=== PATIENT | female | born 1965 | race Caucasian/White ===

== ENCOUNTER → 2016-12-10 | Outpatient (CLI) | payer BC | LOC: GMAH 16:39 | PROVIDERS: ATTEND Family Medicine | DX: M06.4 Inflammatory polyarthropathy (principal) ==

== ENCOUNTER → 2017-12-20 | Outpatient (CLI) | payer BC, OTHER ==
--- NOTE | 2017-12-20 21:15 | MRI ---
EXAM DESCRIPTION: Cervical Spine: MRI. CLINICAL HISTORY: LOW BACK PAIN COMPARISON: MRI lumbar spine on the same visit. TECHNIQUE: Multiplanar MRI, multiple sequences, non-contrast High-field. FINDINGS: C3-C4: Disc desiccation minimal anterior bulge. Disc space preserved. Posterior bulge in the midline 3 mm abutting the cord. Moderate canal narrowing. Bilateral facets are unremarkable. Bilateral neural foramina are patent. C4-5: Disc space loss and trace retrolisthesis. Anterior disc bulge and endplate ridging. Posterior disc osteophyte bulge abutting the cord. Bilateral uncinate spurs. Moderate canal narrowing and bilateral moderate neural foraminal narrowing. Bilateral facets are unremarkable. C5-6: Moderate disc space loss and disc desiccation with anterior bulging and endplate ridging. Grade 1 retrolisthesis. Posterior midline disc osteophyte bulge impressing on the cord with borderline canal stenosis. Bilateral uncinate spurs. Minimal left facet arthrosis. Mild left neural foraminal stenosis. Moderate right neural foraminal narrowing. C6-7: Disc desiccation. Tiny posterior bulge. Disc space preserved. Bilateral facets are unremarkable. Bilateral neural foramina are patent. Mild canal narrowing. Normal signal in the remaining discs with no bulging. Disc spaces preserved. Canal and neural foramina are patent. Facets negative. No scoliosis. Spine is kyphotic C2-C5. No cord compression or cord edema. Atlantoaxial joint is unremarkable. Base of the cerebellar tonsils is above the foramen magnum. Paravertebral soft tissues show small cyst in the upper pole of the left thyroid lobe. Vertebral bodies are not compressed at any level. Well-circumscribed T1 and T2 signal in the odontoid process. Similar signal in the left C3 vertebral body the C5 vertebral body and the C7 and T1 vertebral bodies. No signal on inversion recovery in these regions. Otherwise normal marrow signal in the remaining vertebral bodies and the posterior elements. IMPRESSION: 1. Grade 1 retrolisthesis C5-6 with posterior midline disc osteophyte bulge or focal protrusion impressing on the cord with borderline canal stenosis. Mild left neural foraminal stenosis, correlate for left C6 radiculopathy. 2. Posterior C4-5 disc osteophyte bulge abutting the cord. Bilateral moderate neural foraminal narrowing and canal narrowing. 3. Posterior midline C3-4 disc bulge abutting the cord with moderate canal narrowing. 4. 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 Electronically signed by: David Fitzgerald MD 12/20/2017 9:13 PM CDT
--- NOTE | 2017-12-20 21:27 | MRI ---
EXAM DESCRIPTION: Lumbar Spine w/o Contrast : Magnetic Resonance Imaging. CLINICAL HISTORY: BACK PAIN COMPARISON: MRI scan cervical spine on this visit. TECHNIQUE: Multiplanar, multiple standard sequences, non contrast MRI, lumbar spine. FINDINGS: L5-S1: Minimal disc desiccation. Minimal disc space loss. Focal right posterior disc protrusion abutting the descending right S1 nerve above the lateral recess. Moderate right paracentral canal narrowing. Posterior elements unremarkable. Bilateral foramina are patent. L4-5: Disc desiccation and disc space preserved. Posterior minimal broad-based bulge abutting the thecal sac. Minimal arthrosis in the right facet. 5 mm left intraforaminal disc bulge with annular fissure abutting the exiting left L4 nerve with moderate canal narrowing. L3-4: Normal signal in the disc. Minimal hypertrophy of the posterior ligaments with mild canal narrowing. Facets are unremarkable and bilateral foramina are patent. L2-3: Anterior Modic type II endplate reactive changes in the L2 endplate. Normal signal in the disc with no posterior bulging. Posterior elements unremarkable. Canal and foramina are patent. L1-2 disc with normal signal and normal disc space. Posterior elements are unremarkable. Canal and foramina are patent. Conus terminates at this level. T12-L1: Disc space normal. Normal signal in the disc. Posterior elements unremarkable. Canal and foramina are patent. Heterogeneous marrow signal. Multiple varying size well-circumscribed round foci of bright T1 and T2 signal which are not seen on the inversion recovery sequences. Anatomic curvature of the spine. Paravertebral soft tissues are unremarkable.. Heterogeneous marrow signal in the remainder of the bone elements. Vertebral bodies are not compressed at any level. IMPRESSION: 1. Focal right posterior L5-S1 disc protrusion impressing on the descending right S1 nerve. Correlate for right S1 radiculopathy. 2. L4-5 disc bulge with annular fissure into the left foramen abutting the exiting left L4 nerve. Correlate for radiculopathy. 3. Anterior spondylosis L2-3. Disc unremarkable. Canal and foramina are patent. 4. Marrow reconversion and inhomogeneity with multiple focal small hemangiomas. Electronically signed by: David Fitzgerald MD 12/20/2017 9:26 PM CDT
== END ==
LOC: MRI 13:14
PROVIDERS: ATTEND Family Medicine
DX: M43.12 Spondylolisthesis, cervical region (principal); M50.222 Other cervical disc displacement at C5-C6 level

== ENCOUNTER → 2018-03-01 | Outpatient (CLI) | payer BC | LOC: GMATM 20:25 | PROVIDERS: ATTEND Nurse Practitioner Family | DX: R39.11 Hesitancy of micturition (principal) ==

== ENCOUNTER 2018-08-10 07:46 | Day surgery (SDC) | payer BC ==
[~2018-08-10 07:46] MED LIST: LACTATED RINGERS 1,000 ML ONE; MIDAZOLAM INJ 2 MG/2 ML VIAL ONE
[2018-08-10 10:00] VITALS: BP 111/78; TEMP 97; O2SAT 100
[2018-08-10] MEDS ORDERED: LIDOCAINE 1% 10 ML VIAL INJ ONE (10:00)
[2018-08-10] MEDS ORDERED: PROPOFOL 200 MG/20 ML VIAL IV ONE (10:00)
--- NOTE | 2018-08-10 10:42 | OP ---
DATE OF PROCEDURE: 08/10/18 PREOPERATIVE DIAGNOSIS: 1. Colorectal cancer screen, average risk. POSTOPERATIVE DIAGNOSIS: 1. Tortuous colon. 2. 1 cm polyp in the vicinity of the hepatic flexure left untouched due to colonic redundancy and technical difficulty upon available equipment. PROCEDURE: 1. Colonoscopy. SURGEON: Joe Turk MD. ANESTHESIA: MAC. PROCEDURE: Informed consent was obtained prior to sedation. The preprocedure cardiopulmonary assessment was satisfactory. The patient was placed in the left lateral decubitus position and was sedated by the Anesthesia team. The tip of the Olympus colonoscope was inserted in the rectum and guided through the entire colon under direct visualization. The cecum was identified. The entire colon was redundant and there were areas of increased tortuosity in the seeming hepatic flexure and splenic flexure characterized by tightness. Slow withdrawal showed evidence of a 1 cm flat-based polyp in the vicinity of the hepatic flexure that was left untouched due to technical difficulties mentioned above. Continuation of withdrawal showed no further abnormality. The scope was then withdrawn from the patient and the procedure was terminated. The quality of the prep was good. COMPLICATIONS: None. RECOMMENDATION: Repeat colonoscopy in [place] with pediatric colonoscope 190 for polypectomy and better examination of tortuous colon. #[id number] [facility]
== END 2018-08-10 09:40 | disposition home or self-care (01) ==
LOC: AMB 07:46
DX: Z12.11 Encounter for screening for malignant neoplasm of colon (principal); Q43.8 Other specified congenital malformations of intestine; D12.3 Benign neoplasm of transverse colon; M19.90 Unspecified osteoarthritis, unspecified site; F32.9 Major depressive disorder, single episode, unspecified; Z79.899 Other long term (current) drug therapy
CPT/HCPCS: 00812; 45378; J2250; J3490; J7120

== ENCOUNTER → 2019-01-18 | Outpatient (CLI) | payer BC | LOC: LAB.O 18:59 | PROVIDERS: ATTEND Family Medicine | DX: M06.89 Other specified rheumatoid arthritis, multiple sites (principal); M06.4 Inflammatory polyarthropathy; M15.0 Primary generalized (osteo)arthritis; E53.9 Vitamin B deficiency, unspecified; Z79.899 Other long term (current) drug therapy; Z01.89 Encounter for other specified special examinations ==

== ENCOUNTER → 2019-03-21 | Outpatient (CLI) | payer BC | LOC: GMA MATASK 16:45 | PROVIDERS: ATTEND Family Medicine | DX: E03.9 Hypothyroidism, unspecified (principal) ==

== ENCOUNTER → 2020-03-19 | Outpatient (CLI) | payer BC | LOC: GMA MATASK 16:46 | PROVIDERS: ATTEND Family Medicine | DX: Z00.00 Encounter for general adult medical examination without abnormal findings (principal); R50.9 Fever, unspecified ==

== ENCOUNTER → 2020-09-17 | Outpatient (CLI) | payer BC ==
--- NOTE | 2020-09-18 18:27 | MAM ---
EXAM DESCRIPTION: 3D Screening BILATERAL : Digital Mammography. CLINICAL HISTORY: 54 years Female ANNUAL SCREENING . No complaints and no family history of breast cancer. Menarche age 12. Childbirth age 19. Menopause age 51. Currently on HRT. Bilateral breast reduction.. Lifetime risk of developing breast cancer (Tyrer-Cuzick model)(%): 7.4. COMPARISON: Baseline study at this facility. No prior reports available. TECHNIQUE: Bilateral CC and MLO projection full-field images, with Pam Implant Displacement digital tomosynthesis mammographic technique. Bilateral 2-D digital full-field images, MLO and CC projections, non-displaced. Bilateral digital 2-D full-field MLO images. : With implant displacement. CAD available for 2-D images. FINDINGS: The breast parenchymal density pattern is: Heterogeneously dense breast tissue, which may obscure small masses. Bilateral retro-muscular breast implants. Capsules are relatively smooth with minimal folds bilaterally. Symmetric size. Solitary microcalcifications. No skin thickening or nipple retraction No focal, stellate mass or density, focal asymmetry , and no suspicious microcalcifications bilaterally. IMPRESSION: Benign exam. BIRAD CATEGORY: 2 BENIGN FINDINGS. RECOMMENDATIONS: FOLLOW UP: Routine digital bilateral mammographic screening, one year interval from September 2020. Written communication explaining the IMPRESSION and follow-up, will be mailed to the patient and referring health care provider. According to the [employer], yearly mammograms are recommended starting at age 40 and continuing as long as a woman is in good health. Any breast change noted on a breast self-exam should be reported promptly to the patient's healthcare provider. Breast MRI is recommended for women with an approximately 20-25% or greater lifetime risk of breast cancer, including women with a strong family history of breast or ovarian cancer and women who have been treated for Hodgkin's disease. A negative mammographic report should not delay tissue diagnosis in patients with significant clinical history or physical findings. Extremely dense breast tissue limits the sensitivity of digital mammography. Electronically signed by: David Fitzgerald MD 09/18/2020 6:25 PM [facility]
== END ==
LOC: MAMMO 13:47
PROVIDERS: ATTEND Obstetrics & Gynecology
DX: Z12.31 Encounter for screening mammogram for malignant neoplasm of breast (principal)